=== PATIENT | male | born 1955 | race Caucasian/White ===

== ENCOUNTER 2016-10-01 19:26 | Inpatient (IN) | payer MEDICAID, OTHER ==
[~2016-10-01] VITALS: Ht 188 cm; Wt 80.9 kg
[2016-10-01 19:30] VITALS: Ht 188 cm; Wt 80.9 kg
[2016-10-01] MEDS ORDERED: ASPIRIN 325 MG TAB PO STA (19:56)
[2016-10-01] MEDS ORDERED: NITROGLYCERIN 2% 1 GM OINT PKT TD STA (19:56)
[2016-10-01 20:23] LABS: BASOPHIL # 0.1 10^3/ul (0.0-0.1); BASOPHILS % 1.1 % (0.0-2.0); EOSINOPHILS # 0.1 10^3/ul (0.0-0.5); EOSINOPHILS % 2.4 % (0.0-7.0); HEMATOCRIT 37.3 % (42.0-52.0); HEMOGLOBIN 12.5 g/dl (14.0-18.0); LYMPHOCYTES # 2.1 10^3/ul (0.8-2.9); LYMPHOCYTES % 33.4 % (15.0-51.0); MEAN CORPUSCULAR HEMOGLOBIN 31.4 pg (29.0-33.0); MEAN CORPUSCULAR HGB CONC 33.5 g/dl (32.0-37.0); MEAN CORPUSCULAR VOLUME 93.5 fl (82.0-101.0); MEAN PLATELET VOLUME 9.2 fl (7.4-10.4); MONOCYTE # 0.6 10^3/ul (0.3-0.9); MONOCYTES % 9.5 % (0.0-11.0); NEUTROPHIL # 3.3 10^3/ul (1.6-7.5); NEUTROPHILS % 53.6 % (39.0-77.0); PLATELET COUNT 220 10^3/UL (140-440); RED BLOOD COUNT 3.99 10^6/ul (4.70-6.10); RED CELL DISTRIBUTION WIDTH 14.3 % (11.5-14.5); UNCORRECTED WBC 6.2 10^3/ul (4.8-10.8); WHITE BLOOD COUNT 6.2 10^3/ul (4.8-10.8)
--- NOTE | 2016-10-01 20:23 | RADRPT ---
PROCEDURE: Chest x-ray CLINICAL INDICATION: Chest pain TECHNIQUE: Chest single view COMPARISON: None FINDINGS: There is mild cardiomegaly and an sclerotic aortic calcification. The pulmonary vessels are normal i n caliber. The lungs are clear. The costophrenic angles are sharp. The visualized bony thorax is unremarkable. IMPRESSION: No acute cardiopulmonary disease. Mild cardiomegaly and atherosclerotic aortic calcification RPTAT: HH .Sidney Charles MD, MD Date Time Electronically viewed and signed by .Sidney Charles MD, on 10/01/2016 20:22 .W/
[2016-10-01 20:24] LABS: CONDITION 1
[2016-10-01 20:30] LABS: CHLORIDE 106 mmol/L (97-110); POTASSIUM 4.5 mmol/L (3.5-5.1); SODIUM 146 mmol/L (135-144)
[2016-10-01 20:33] LABS: ANION GAP 16 (8-16); BLOOD UREA NITROGEN 27 mg/dl (7-20); CARBON DIOXIDE 29 mmol/L (21-31); CREATININE 0.85 mg/dl (0.61-1.24)
[2016-10-01 20:34] LABS: GLUCOSE 85 mg/dl (70-220)
[2016-10-01] MEDS ORDERED: SERT25TA83 PO (20:37)
[2016-10-01] MEDS ORDERED: HYDR-3012 PO (20:39)
[2016-10-01] MEDS ORDERED: TAMS0.4C2 PO (20:39)
[2016-10-01] MEDS ORDERED: ACET325T45 PO (20:40)
[2016-10-01] MEDS ORDERED: ASPI-664 PO (20:40)
[2016-10-01] MEDS ORDERED: HYD25 PO (20:41)
[2016-10-01] MEDS ORDERED: LISI-313 PO (20:41)
[2016-10-01] MEDS ORDERED: METO-448 PO (20:42)
[2016-10-01 20:46] LABS: TROPONIN-I < 0.012 ng/ml (0.00-0.12)
--- NOTE | 2016-10-01 22:37 | ERA ---
ER Documentation Chief Complaint Date/Time DATE: 10/01/16 TIME: 22:33 Chief Complaint left side chest pain,hx drug abuse, from Rehab HPI This is 60-year-old male was brought in from a rehab facility. The patient states that he has an rehab because of a fractured left leg. The patient states that he having substernal chest pressure with radiation to bilateral jaws and left upper extremity with some shortness of breath no nausea no diaphoresis. The pain occurred 2 hours ago and has just resolved. Patient denies hypertension but says that he had myocardial infarction 2 months ago while he was in [facility]. He stated the [place] [facility] him to a hospital in [place] where he underwent a coronary artery catheterization that did not show any blockage. He cannot recall the name of this hospital. We attempted to call [facility] to find out which hospital he was transferred to in order to obtain cardiac cath records but they are unable to provide us this information at this time ROS All systems reviewed and are negative except as per history of present illness. Medications Home Meds Reported Medications Metoprolol Tartrate* (Lopressor*) 25 Mg Tab, 25 MG PO BID, #60 TAB 10/01/16 Lisinopril* (Lisinopril*) 5 Mg Tablet, 5 MG PO DAILY, #30 TAB 10/01/16 Hydrochlorothiazide* (Hydrochlorothiazide*) 25 Mg Tab, 25 MG PO DAILY, #30 TAB 10/01/16 Acetaminophen* (Acetaminophen*) 325 Mg Tablet, 325 MG PO Q4H Y for PAIN AND OR ELEVATED TEMP, #30 TAB 10/01/16 Aspirin* (Aspirin* EC) 81 Mg Tablet.dr, 81 MG PO DAILY, TAB 10/01/16 Tamsulosin Hcl* (Tamsulosin Hcl*) 0.4 Mg Cap.er.24h, 0.4 MG PO DAILY, CAP 10/01/16 Hydroxyzine Hcl* (Hydroxyzine Hcl*) 50 Mg Tablet, 50 MG PO DAILY Y for ITCHING, #30 TAB 10/01/16 Sertraline Hcl* (Sertraline Hcl*) 25 Mg Tablet, 25 MG PO DAILY, #15 TAB 10/01/16 Allergies Allergies: Coded Allergies: Sulfa (Sulfonamide Antibiotics) (Verified Allergy, Unknown, hives, 10/01/16 ) FmHx Family History: No coronary disease Physical Exam Vitals Vital Signs Date Time Temp Pulse Resp B/P Pulse Ox O2 Delivery O2 Flow Rate FiO2 10/01/16 22:10 70 16 129/70 95 Room Air 10/01/16 21:12 50 16 131/99 98 Room Air 10/01/16 20:28 51 16 132/83 99 Room Air 10/01/16 20:09 Nasal Cannula 2 10/01/16 19:41 57 16 140/83 99 Room Air 10/01/16 19:30 97.1 61 18 151/89 97 Physical Exam Const: Well-developed, well-nourished Head: Atraumatic, normocephalic Eyes: Normal Conjunctiva, PERRLA, EOMI, normal sclera, no nystagmus ENT: Normal External Ears, Nose and Mouth, moist mucus membranes. Neck: Full range of motion. No meningismus, no lymphadenopathy. Resp: Clear to auscultation bilaterally, no wheezing, rhonchi, rales Cardio: Regular rate and rhythm, no murmurs, S1 S2 present Abd: Soft, non tender x 4, non distended. Normal bowel sounds, no guarding or rebound, no pulsitile abdominal masses or bruits Skin: No petechiae or rashes, no ecchymosis , no maculopapular rash Back: No midline or flank tenderness Ext: No cyanosis, or edema, FROM x 4, normal inspection, neurovascularly intact x 4 Neur: Awake and alert, STR 5/5 x 4, sensation intact x 4, no focal findings, cerebellum intact Psych: Very strange affect, slightly bizarre behavior with erratic answers at times but is oriented Result Diagram: 10/01/16199910/01/161999 Results 24 hrs Laboratory Tests Test 10/01/16 20:00 Anion Gap 16 Basophils # 0.110^3/ul Basophils % 1.1% Blood Urea Nitrogen 27mg/dl Calcium Level 9.0mg/dl Carbon Dioxide Level 29mmol/L Chloride Level 106mmol/L Creatinine 0.85mg/dl Eosinophils # 0.110^3/ul Eosinophils % 2.4% Glucose Level 85mg/dl Hematocrit 37.3% Hemoglobin 12.5g/dl Lymphocytes # 2.110^3/ul Lymphocytes % 33.4% Mean Corpuscular Hemoglobin 31.4pg Mean Corpuscular Hemoglobin Concent 33.5g/dl Mean Corpuscular Volume 93.5fl Mean Platelet Volume 9.2fl Monocytes # 0.610^3/ul Monocytes % 9.5% Neutrophils # 3.310^3/ul Neutrophils % 53.6% Nucleated Red Blood Cells # 0.010^3/ul Nucleated Red Blood Cells % 0.0/100WBC Platelet Count 61569^3/UL Potassium Level 4.5mmol/L Red Blood Count 3.9910^6/ul Red Cell Distribution Width 14.3% Sodium Level 146mmol/L Troponin I < 0.012ng/ml White Blood Count 6.210^3/ul Current Medications Medications (Trade) Dose Ordered Sig/Shantell Route PRN Reason Start Time Stop Time Status Last Admin Dose Admin Aspirin (Aspirin) 325 mg ONCE STAT PO 10/01/16 19:56 10/01/16 19:57 DC 10/01/16 20:05 Nitroglycerin (Nitroglycerin 2% Oint) 1 inch ONCE STAT TD 10/01/16 19:56 10/01/16 19:57 DC 10/01/16 20:04 Procedures/MDM EKG: Rate/Rhythm: Sinus bradycardia with premature atrial complexes QRS, ST, QT: NORMAL [place], QRS, QT] Impression: Sinus bradycardia EKG PROCEDURE: Chest x-ray CLINICAL INDICATION: Chest pain TECHNIQUE: Chest single view COMPARISON: None FINDINGS: There is mild cardiomegaly and an sclerotic aortic calcification. The pulmonary vessels are normal in caliber. The lungs are clear. The costophrenic angles are sharp. The visualized bony thorax is unremarkable. IMPRESSION: No acute cardiopulmonary disease. Mild cardiomegaly and atherosclerotic aortic calcification RPTAT: HH .Sidney Charles MD, Date Time Electronically viewed and signed by .Sidney Charles MD, on 10/01/2016 20:22 .W/ CC: SHIREEN SHEFFIELD DO Patient received aspirin and nitroglycerin to anterior chest wall. Cardiac workup is negative thus far. Insert ascertain the patient is truly having the symptoms to his slightly bizarre behavior nonetheless will air on the side of caution and admit him for observation Departure Diagnosis: Primary Impression: Chest pain Qualified Code: R07.9 - Chest pain, unspecified type Condition: Stable SHIREEN SHEFFIELD DO Oct 01, 2016 22:37
[2016-10-01] MEDS ORDERED: SOD CHLORIDE 0.9% 1,000 ML IV SCH (23:03)
[2016-10-01] MEDS ORDERED: ACETAMINOPHEN 325 MG TAB PO PRN (23:30)
[2016-10-01] MEDS ORDERED: ONDANSETRON 4 MG INJ IV PRN (23:30)
[2016-10-02] VITALS (17 sets, daily range): BP systolic 124–152; BP diastolic 73–95; PULSE 42–81; RESP 18–20
[2016-10-02] MEDS ORDERED: hydrOXYzine HCL 25 MG TAB PO PRN (01:30)
[2016-10-02] MEDS ORDERED: NITROGLYCERIN (SL) 0.4 MG TAB SL PRN (01:30)
[2016-10-02] MEDS ORDERED: ONDANSETRON 4 MG INJ IV PRN (01:30)
[2016-10-02] MEDS ORDERED: morphine 2 MG INJ IV PRN (01:30)
[2016-10-02] MEDS ORDERED: ACETAMINOPHEN 325 MG TAB PO PRN (01:30)
[2016-10-02 07:23] LABS: CREATINE KINASE 110 IU/L (23-200)
[2016-10-02 07:48] LABS: CK-MB 0.94 ng/ml (0.0-2.4); TROPONIN-I < 0.012 ng/ml (0.00-0.12)
--- NOTE | 2016-10-02 08:05 | HP ---
DATE OF ADMISSION: 10/01/2016 CHIEF COMPLAINT: Chest pain. HISTORY OF PRESENT ILLNESS: The patient is a 60-year-old male with a history of hypertension, BPH, depression, and drug abuse who presented to the emergency department with a chief complaint of chest pain. The patient had been at the acute rehab facility for left leg fracture. He stated that whil e he was watching TV, he started having pressure-like chest pain, initially localized in the mid cheryl st with radiation to his left arm and to some extent to his jaw. He reported some shortness of humza th but denied nausea, vomiting, or diaphoresis. The patient reported having had a "heart attack" 2 months ago while he was in at [facility]. He stated he was sent to some hospital in [place] where he underwent cardiac catheterization but said there were no blocked arteries that were found. The ER attempted to call [facility] to find out which hospital he was sent to in order to obtain his car diac records, but the residential was not able to provide that information. Currently, he stated his pain is better but it is 3/10. He was given nitro and aspirin while he was in the ER. Laboratory value shows hemoglobin of 12.5 and sodium of 146 and BUN 27. Otherwise, CBC and BMP are within normal torres its. First troponin is negative. The EKG shows sinus bradycardia. As far as his vitals are concer socorro, initially he presented with blood pressure 151/89, heart rate 61, respiratory rate 18, temperat ure 97.1, oxygen saturation 97% on room air. His heart rate has been documented to be as low as 45. REVIEW OF SYSTEMS: A 12-point review of systems performed and negative except as mentioned in HPI. PAST MEDICAL HISTORY: As per HPI. SOCIAL HISTORY: He had a history of drug abuse. ALLERGIES: SULFA. HOME MEDICATION: 1. Flomax. 2. Lisinopril. 3. Lopressor. 4. Tylenol. 5. Aspirin. 6. Hydroxyzine. 7. Sertraline. 8. Hydrochlorothiazide. PHYSICAL EXAMINATION: VITAL SIGNS: Blood pressure 129/70, heart rate 50, respiratory rate 16, temperature earlier was 97. 1, oxygen saturation 98% on room air. GENERAL: No acute distress. The patient is alert and oriented. HEENT: No obvious head deformity. Pupils are reactive to light. Extraocular muscles intact. CARDIOVASCULAR: Bradycardia with regular rhythm. LUNGS: Clear. ABDOMEN: Soft, nontender, nondistended. Positive bowel sounds. EXTREMITIES: No edema. NEUROLOGIC: No focal deficits. LABORATORY DATA: Sodium 146, BUN 27, and hemoglobin 12.5. Otherwise, CBC and BMP within normal torres its. First troponin is negative. IMAGING: Chest x-ray shows mild cardiomegaly with atherosclerotic aortic calcification with no evid ence of acute cardiopulmonary disease. IMPRESSION: 1. Chest pain, need to rule out acute coronary syndrome. 2. Hypertension. 3. Benign prostatic hypertrophy. 4. History of depression. 5. Self-reported history of ME 2 months ago at [facility] 6. Mild hypernatremia. 7. Mild normocytic anemia. PLAN: Continue telemetry monitoring. The first troponin is negative and EKG with no ST-T wave abno rmalities. We will trend his troponin. He will be continued with his home medications which includ e metoprolol, lisinopril, and aspirin. He will also be placed on oxygen and will be provided as nee ded nitro and morphine. We will obtain a 2D echo, and we will consider a cardiology consult. We wi ll attempt to contact the [facility] to get information of the hospital that the patient claims that he was transferred to and had cardiac catheterization. Further workup and management per clinical course. Dictated By: JARED GIVENS/JESS Conf#: [id number] DID#: [id number]
[2016-10-02] MEDS ORDERED: METOPROLOL 25 MG TAB PO SCH (09:00)
[2016-10-02] MEDS: ASPIRIN (EC) 81 MG TAB PO SCH (09:33)
[2016-10-02] MEDS: SERTRALINE 50 MG TAB PO SCH (09:34)
[2016-10-02] MEDS: LISINOPRIL 5 MG TAB PO SCH (09:34)
[2016-10-02] MEDS: HYDROCHLOROTHIAZIDE 25 MG TAB PO SCH (09:37)
--- NOTE | 2016-10-02 13:19 | CONS ---
Date/Time of Note Date/Time of Note DATE: 10/02/16 TIME: 13:12 Assessment/Plan Assessment/Plan Additional Assessment/Plan Chest pain Palpitations Nonsustained ventricular tachycardia Possible cardiomyopathy based on history History of amphetamine and cocaine use -Serial troponins have remained negative, ECG without any significant ischemic abnormalities. Telemetry reviewed with brief episodes of nonsustained ventricular tachycardia. Would continue beta noreen as blood pressure and heart rate permits, and maintain potassium above 4.0 and magnesium above 2.0. Check echocardiogram, continue telemetry monitoring. Check TSH and magnesium level. Obtain records of coronary angiogram. Consultation Date/Type/Reason Admit Date/Time Oct 01, 2016 at 23:04 Type of Consultation: cv Reason for Consultation Palpitations and chest pain Hx of Present Illness This is a 60-year-old male with past medical history of hypertension, "enlarged heart" who presents with symptoms of palpitations and chest pain. Patient was getting out of the shower, and felt weak and warm. He felt discomfort on the left side of his chest and his left arm with palpitations. The symptoms continued to worsen until he came to the emergency room. He does complain of frequent symptoms of "mixed heart beats". He denies exertional chest pain or shortness of breath. He was recently incarcerated at [facility]. While he was there approximately 2 months ago, patient with severe chest pain and shortness of breath. He states he was transferred to a hospital in [place] and underwent coronary angiogram. He was told his arteries were fine but he had a "large and weak heart". He was put on medications and sent back to the jail. 12 point review of systems was performed with all pertinent positives and negatives mentioned above and all else is negative Past Medical History Possible congestive heart failure Hypertension Past Surgical History Orthopedic surgery Family History Significant Family History: no pertinent family hx Social History Alcohol Use: none Smoking Status: Current some day smoker Drug Use: other (patient currently smokes marijuana, previously use to use amphetamines and cocaine but stopped 3 years ago) Exam/Review of Systems Vital Signs Vitals Vital Signs Date Time Temp Pulse Resp B/P Pulse Ox O2 Delivery O2 Flow Rate FiO2 10/02/16 12:23 42 10/02/16 11:53 98.5 19 134/92 96 10/02/16 01:42 Room Air 10/01/16 20:09 2 Exam No apparent distress Constitutional: alert, oriented, well developed Head: normocephalic Neck: supple Respiratory: other (course breath sounds bilaterally, no wheezing) Cardiovascular: other (S1 and S2 heard), regular rate and rhythm Gastrointestinal: bowel sounds, non-tender, other (no guarding), soft Extremities: other (no edema) Results Result Diagram: 10/01/16199910/01/161999 Results 24 hrs Laboratory Tests Test 10/01/16 20:00 10/02/16 01:50 10/02/16 05:10 Anion Gap 16 Basophils # 0.1 Basophils % 1.1 Blood Urea Nitrogen 27 H Calcium Level 9.0 Carbon Dioxide Level 29 Chloride Level 106 Creatinine 0.85 Eosinophils # 0.1 Eosinophils % 2.4 Glucose Level 85 Hematocrit 37.3 L Hemoglobin 12.5 L Lymphocytes # 2.1 Lymphocytes % 33.4 Mean Corpuscular Hemoglobin 31.4 Mean Corpuscular Hemoglobin Concent 33.5 Mean Corpuscular Volume 93.5 Mean Platelet Volume 9.2 Monocytes # 0.6 Monocytes % 9.5 Neutrophils # 3.3 Neutrophils % 53.6 Nucleated Red Blood Cells # 0.0 Nucleated Red Blood Cells % 0.0 Platelet Count 220 Potassium Level 4.5 Red Blood Count 3.99 L Red Cell Distribution Width 14.3 Sodium Level 146 H Troponin I < 0.012 < 0.012 < 0.012 White Blood Count 6.2 Creatine Kinase 110 Creatine Kinase Index 0.9 Creatinine Kinase MB (Mass) 0.94 Medications Medications Current Medications Acetaminophen (Tylenol Tab) 325 mg Q4H PRN PO PAIN AND OR ELEVATED TEMP; Start 10/02/16 at 01:30 Aspirin (Halfprin) 81 mg DAILY PO Last administered on 10/02/16 09:33; Admin Dose 81 MG; Start 10/02/16 at 09:00 Hydrochlorothiazide (Hydrochlorothiazide) 25 mg DAILY PO Last administered on 09:37; Admin Dose 25 MG; Start 10/02/16 at 09:00 Hydroxyzine HCl (Atarax) 50 mg DAILY PRN PO ITCHING; Start 10/02/16 at 01:30 Lisinopril (Zestril) 5 mg DAILY PO Last administered on 10/02/16 09:34; Admin Dose 5 MG; Start 10/02/16 at 09:00 Metoprolol Tartrate (Lopressor) 25 mg BID PO Last administered on 10/02/16 09: 46; Admin Dose 25 MG; Start 10/02/16 at 09:00 Sertraline HCl (Zoloft) 25 mg DAILY PO Last administered on 10/02/16 09:34; Admin Dose 25 MG; Start 10/02/16 at 09:00 Tamsulosin HCl (Flomax) 0.4 mg DAILY@21 PO ; Start 10/02/16 at 21:00 Atorvastatin Calcium (Lipitor) 20 mg HS PO ; Start 10/02/16 at 21:00 Ondansetron HCl (Zofran Inj) 4 mg Q4H PRN IV NAUSEA AND/OR VOMITING; Start at 01:30 Morphine Sulfate (morphine) 2 mg Q4H PRN IV SEVERE PAIN LEVEL 7-10; Start 10/02 at 01:30 Nitroglycerin (Nitroglycerin (Sl Tab) 0.4 Mg) 1 tab Q5M PRN SL ANGINA; Start at 01:30 Procedures Procedures ECG demonstrates sinus bradycardia at 56 bpm with PVC, QRS 90 ms, no significant STT wave abnormalities Telemetry reviewed with brief episodes of nonsustained VT, polymorphic Jesus Rodriguez DO Oct 02, 2016 13:19
[2016-10-02 13:40] LABS: MAGNESIUM 1.8 mg/dl (1.7-2.5)
[2016-10-02 14:11] LABS: THYROID STIMULATING HORMONE 2.16 MIU/L (0.465-4.680)
[2016-10-02] MEDS ORDERED: DOCUSATE SODIUM 100 MG CAP PO PRN (15:00)
--- NOTE | 2016-10-02 15:06 | PN ---
Date/Time of Note Date/Time of Note DATE: 10/02/16 TIME: 15:01 Assessment/Plan VTE Prophylaxis VTE Prophylaxis Intervention: LMWH Lines/Catheters IV [facility] Urinary Cath still in place: No Assessment/Plan Chief Complaint/Hosp Course S- moderate sharp/ pressure atypical chest pain at rest. some pleuritic nature. no dyspnea/ cough/edema/fever. O- vss; nsvt noted PE no pallor jvd s1s2 reg; no r m g ctab bs + nt nd no r r g no edema or Chasidy's A/P 1. Chest pain; stable, ro acs/ unstable angina. 2. CAD; continue medical management. adherence may be an issue with aggressive intervention 3. Htn; sinus kenn noted 4. Tobacco abuse 5. Ho marijuana/ cocaine/ meth use? 6. Old mi via history; trying to obtain cath results 7. Ho lt leg fracture 8. Nsvt 9. Ischemic cardiomyopathy; EF pending 10. Depression 11. Bph Problems: Exam/Review of Systems Vital Signs Vitals Vital Signs Date Time Temp Pulse Resp B/P Pulse Ox O2 Delivery O2 Flow Rate FiO2 10/02/16 13:31 49 10/02/16 11:53 98.5 19 134/92 96 10/02/16 01:42 Room Air 10/01/16 20:09 2 Results Result Diagram: 10/01/16199910/01/161999 Results 24 hrs Laboratory Tests Test 10/01/16 20:00 10/02/16 01:50 10/02/16 05:10 Anion Gap 16 Basophils # 0.1 Basophils % 1.1 Blood Urea Nitrogen 27 H Calcium Level 9.0 Carbon Dioxide Level 29 Chloride Level 106 Creatinine 0.85 Eosinophils # 0.1 Eosinophils % 2.4 Glucose Level 85 Hematocrit 37.3 L Hemoglobin 12.5 L Lymphocytes # 2.1 Lymphocytes % 33.4 Mean Corpuscular Hemoglobin 31.4 Mean Corpuscular Hemoglobin Concent 33.5 Mean Corpuscular Volume 93.5 Mean Platelet Volume 9.2 Monocytes # 0.6 Monocytes % 9.5 Neutrophils # 3.3 Neutrophils % 53.6 Nucleated Red Blood Cells # 0.0 Nucleated Red Blood Cells % 0.0 Platelet Count 220 Potassium Level 4.5 Red Blood Count 3.99 L Red Cell Distribution Width 14.3 Sodium Level 146 H Troponin I < 0.012 < 0.012 < 0.012 White Blood Count 6.2 Creatine Kinase 110 Creatine Kinase Index 0.9 Creatinine Kinase MB (Mass) 0.94 Magnesium Level 1.8 Thyroid Stimulating Hormone (TSH) 2.160 Medications Medications Current Medications Acetaminophen (Tylenol Tab) 325 mg Q4H PRN PO PAIN AND OR ELEVATED TEMP; Start 10/02/16 at 01:30 Aspirin (Halfprin) 81 mg DAILY PO Last administered on 10/02/16 09:33; Admin Dose 81 MG; Start 10/02/16 at 09:00 Hydrochlorothiazide (Hydrochlorothiazide) 25 mg DAILY PO Last administered on 09:37; Admin Dose 25 MG; Start 10/02/16 at 09:00 Hydroxyzine HCl (Atarax) 50 mg DAILY PRN PO ITCHING; Start 10/02/16 at 01:30 Lisinopril (Zestril) 5 mg DAILY PO Last administered on 10/02/16 09:34; Admin Dose 5 MG; Start 10/02/16 at 09:00 Sertraline HCl (Zoloft) 25 mg DAILY PO Last administered on 10/02/16 09:34; Admin Dose 25 MG; Start 10/02/16 at 09:00 Tamsulosin HCl (Flomax) 0.4 mg DAILY@21 PO ; Start 10/02/16 at 21:00 Atorvastatin Calcium (Lipitor) 20 mg HS PO ; Start 10/02/16 at 21:00 Ondansetron HCl (Zofran Inj) 4 mg Q4H PRN IV NAUSEA AND/OR VOMITING; Start at 01:30 Morphine Sulfate (morphine) 2 mg Q4H PRN IV SEVERE PAIN LEVEL 7-10; Start 10/02 at 01:30 Nitroglycerin (Nitroglycerin (Sl Tab) 0.4 Mg) 1 tab Q5M PRN SL ANGINA; Start at 01:30 Metoprolol Tartrate (Lopressor) 12.5 mg BID PO ; Start 10/02/16 at 21:00 GUI SIM MD Oct 02, 2016 15:05
--- NOTE | 2016-10-02 15:12 | RADRPT ---
Echocardiogram Report Patient Name: JAN KRAUS Gender: Male Date: 1955 Study Date: 02-Oct-2016 Cemetery Warden: Mercedes Mason [facility] Location: [id number] Ref. Physician: JESUS RODRIGUEZ Quality: Good Procedures: Transthoracic echocardiogram with complete 2D, M-Mode, and doppler examination. Indications: Chest Pain. 2D/M Mode Doppler Measurement Value Normal Ranges Measurement Value Normal Ranges LVIDd 2D 5.3 3.5 - 5.6 cm AV Peak [place] 1.6 m/sec LVIDs 2D 2.7 2.1 - 4.1 cm AV Peak PG 10.5 mmHg LVPWd 2D 1.1 0.6 - 1.1 cm LVOT Peak [place] 0.9 m/sec IVSd 2D 0.9 0.6 - 1.1 cm LVOT Peak PG 3.5 mmHg AoR Diam 2D 3.4 2.0 - 3.7 cm MV E Peak [place] 0.6 m/sec EDV 2D 137.7 cm3 MV A Peak [place] 0.5 m/sec ESV 2D 20.2 cm3 MV E/A 1.2 LA Dimen 2D 4.1 2.3 - 4.0 cm MV Decel Time 260 msec MV Decel [place] 2 MV E/A 1.2 TR Peak [place] 2.8 m/sec TR Peak PG 31.1 mmHg RVSP 39.0 mmHg Findings Left Ventricle: Normal left ventricular systolic function. Normal left ventricular cavity size. Mild concentric left ventricular hypertrophy. Ejection fraction is visually estimated at 55 %. Right Ventricle: Normal right ventricular size. Normal right ventricular systolic function. Left Atrium: There is mild enlargement of left atrium. Right Atrium: The right atrium is normal in size. Mitral Valve: Mitral valve leaflets appear mildly thickened. Mild mitral annular calcification. Trace mitral regurgitation. Aortic Valve: Normal appearance of the aortic valve. No significant aortic stenosis or insufficiency. Tricuspid Valve: Normal appearance and function of the tricuspid valve with trace physiologic regurgitation. Estimated peak PA systolic pressure 39 mmHg. Pericardium: Normal pericardium with no significant pericardial effusion. Aorta: Normal aortic root. IVC: Dilated IVC with respiratory collapse consistent with elevated right atrial pressure. Conclusions 1.Normal left ventricular systolic function. Normal left ventricular cavity size. Mild concentric left ventricular hypertrophy. Ejection fraction is visually estimated at 55 %. 2.Normal right ventricular size. Normal right ventricular systolic function. 3.There is mild enlargement of left atrium. 4.The right atrium is normal in size. 5.No significant valvular stenosis or regurgitation seen. 6.Normal pericardium with no significant pericardial effusion. Electronically Signed By: Jesus Rodriguez 02-Oct-2016 15:11:52 -0800 Patient Name: JAN KRAUS Study Date: 02-Oct-[id number]
[2016-10-02] MEDS: NICOTINE (21 MG/24 HR) PATCH TRANSDERM SCH (20:47)
[2016-10-02] MEDS: MAGNESIUM OXIDE 400 MG TAB PO SCH (20:47)
[2016-10-02] MEDS: ENOXAPARIN 80 MG/0.8 ML SYG SC SCH (20:50)
[2016-10-02] MEDS ORDERED: TAMSULOSIN (SR) 0.4 MG CAP PO SCH (21:00)
[2016-10-02] MEDS: METOPROLOL 25 MG TAB PO SCH (21:00)
[2016-10-02] MEDS ORDERED: ATORVASTATIN 20 MG TAB PO SCH (21:00)
--- NOTE | 2016-10-02 21:32 | RADRPT ---
PROCEDURE: US Lower extremity Venous. CLINICAL INDICATION: Bilateral lower extremity swelling TECHNIQUE: Multiple sonographic images of the bilateral lower extremity deep venous system was obt ained utilizing grayscale, color-flow, compressive sonography and doppler imaging with augmentation. The images were reviewed on a PACS workstation. COMPARISON: None. FINDINGS: There is normal compressibility and flow within the bilateral common femoral, superficial femoral , posterior tibial and popliteal veins. RPTAT: AA IMPRESSION: No sonographic evidence for deep venous thrombosis. .Camden Fleming MD, MD Date Time Electronically viewed and signed by .Camden Fleming MD, on 10/02/2016 21:32 .S/
[2016-10-03] VITALS (13 sets, daily range): BP systolic 128–163; BP diastolic 69–105; PULSE 54–82; RESP 15–20
[2016-10-03] MEDS: METOPROLOL 25 MG TAB PO SCH (01:18)
[2016-10-03 07:14] LABS: INR 1.01; PROTIME 13.3 Sec (12.2-14.2)
[2016-10-03 07:35] LABS: ALBUMIN 3.4 g/dl (3.3-4.9)
[2016-10-03 07:37] LABS: BILIRUBIN,INDIRECT 0.2 mg/dl (0-1.1); BILIRUBIN,TOTAL 0.2 mg/dl (0.2-1.3); CREATININE 0.82 mg/dl (0.61-1.24)
[2016-10-03 07:38] LABS: PHOSPHORUS 3.5 mg/dl (2.5-4.9); TOTAL PROTEIN 6.6 g/dl (6.1-8.1)
[2016-10-03 07:39] LABS: CALCIUM 8.8 mg/dl (8.4-10.2)
[2016-10-03 08:01] LABS: ALBUMIN/GLOBULIN RATIO 1.06
[2016-10-03] MEDS: HYDROCHLOROTHIAZIDE 25 MG TAB PO SCH (08:46)
[2016-10-03] MEDS: LISINOPRIL 5 MG TAB PO SCH (08:46)
[2016-10-03] MEDS: ASPIRIN (EC) 81 MG TAB PO SCH (08:46)
[2016-10-03] MEDS: MAGNESIUM OXIDE 400 MG TAB PO SCH (08:47)
[2016-10-03] MEDS: SERTRALINE 50 MG TAB PO SCH (08:47)
[2016-10-03] MEDS: NICOTINE (21 MG/24 HR) PATCH TRANSDERM SCH (08:49)
[2016-10-03] MEDS: ENOXAPARIN 80 MG/0.8 ML SYG SC SCH (08:51)
[2016-10-03 09:01] LABS: THYROID STIMULATING HORMONE 2.96 MIU/L (0.465-4.680)
--- NOTE | 2016-10-03 11:11 | PDOCDIS ---
Discharge Instructions DIAGNOSIS Discharge Diagnosis: chest pain CONDITION Patient Condition: Good HOME CARE INSTRUCTIONS: Diet Instructions: Low Fat /CholesterolSpecial Diet: 2GM NA/ low chol ACTIVITY: Activity Restrictions: Avoid heavy lifting Do not Drive FOLLOW UP/APPOINTMENTS Appointments [facility] - do not use patch if smoking. GUI SIM MD Oct 03, 2016 11:11
[2016-10-03] MEDS ORDERED: METO-448 PO (11:13)
[2016-10-03] MEDS ORDERED: ATOR20TA65 PO (11:13)
--- NOTE | 2016-10-04 07:18 | DS ---
DATE OF ADMISSION: 10/02/2016 DATE OF DISCHARGE: 10/03/2016 PRIMARY CARE PHYSICIAN: Unknown. INTERIOR DECORATOR PAINTING: Dr. Rodriguez DIAGNOSIS ON ADMISSION: Chest pain. DIAGNOSES ON DISCHARGE: 1. Atypical chest pain, pleurisy. 2. Chronic tobacco abuse. 3. Probable chronic coronary artery disease. 4. Hypertension. 5. Sinus bradycardia. 6. History of substance abuse. 7. 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 8. History of left leg fracture. 9. Nonsustained ventricular tachycardia. 10. Depression. 11. Benign prostatic hypertrophy. 12. Prediabetes. HOSPITAL COURSE: This is a 61-year-old gentleman admitted for chest pain. He was ruled out for acu te coronary syndrome by enzymes, EKG symptoms. He did have PVCs and nonsustained ventricular tachyc ardia. The patient states he had recent cardiac intervention somewhere near [place] or [facility] 1 month ago. He does not have any history of a balloon or angioplasty requiring anticoagulant. W e are unable to obtain further data from his outside hospital as he does not recall which hospital e was at. There was apparently incarcerated at [place] during that time period. The patient was seen by cardiology and if agreeable will be discharged home. He is already on maxim al medical therapy including beta noreen, MERCEDEZ inhibitor, aspirin. I will add a statin. All these medications will be continued with short term prescriptions as I am not sure about his long-term adh erence. No arrhythmias in the last 24 hours. He will be seen by cardiology and if stable will be d ischarged. EF of about 55 to 60 without any significant wall motion abnormalities on this present e cho. He may follow up with cardiology. He will follow up with primary. He has a history of marijuana, cocaine, meth, and tobacco abuse. I reinforced that adherence is vit al to his health. I will additionally reinforce that subsequences will not land surveyor assistant in any medical care that we are trying to do for his heart. He is presently not using cocaine; however, if this b ecomes an issue, we will have to further optimize or tune up his medical care. Additionally, he is instructed not to smoke while using the nicotine patch. I do not have any evidence that he will ari t smoking at this time. The patient has some depression or other behavioral health issues. I will refill Zoloft for the nex t few weeks. Sinus bradycardia as expected. We will change his beta noreen a little bit. As his blood pressure fluctuates, I will increase his lisinopril. DISCHARGE PLAN: Home. FOLLOWUP: With primary in 1 week, cardiology in 2 to 4 weeks, and behavior health in 1 to 2 weeks. DIET: Low salt, cholesterol, cardiac. ACTIVITY: No heavy lifting. DURABLE MEDICAL EQUIPMENT: None. CODE STATUS: FULL. BARRIERS TO DISCHARGE: None. PENDING TESTS: None. FUNCTIONAL STATUS: The patient is awake, alert, aware of the plan of care. REASON FOR ADMISSION: Chest pain. CONDITION: Good. ALLERGIES: SULFA. IMAGING DATA: A 2-D echo noted to have an EF of 55, mild concentric LVH. Chest x-ray: Mild cardio megaly, no acute process. No widened mediastinum on the chest x-ray. Ultrasound: Negative for DVT bilaterally. LABORATORY DATA: White cell count of 6, hemoglobin and hematocrit of 12 and 37. INR 1. CMP essent ially unremarkable. BUN of 24. A1c of 5.6. LFTs okay. TSH of 2. Troponin negative x3. STOPPED MEDICATIONS: None. CONTINUED MEDICATIONS: 1. Tylenol as needed. 2. Aspirin 81. 3. Hydrochlorothiazide 25. 4. Hydroxyzine 50 as needed for itching. 5. Zoloft 25. 6. Flomax 0.4. ALTERED MEDICATIONS 1. Metoprolol now 12.5 twice daily. 2. Lipitor 20 daily. Dictated By: GUI BAL/NTS Conf#: [id number] DID#: [id number] CC: EDISON RODRIGUEZ DO;*End*
[2016-10-04] MEDS ORDERED: LISINOPRIL 10 MG TAB PO SCH (09:00)
--- NOTE | 2016-10-05 22:08 | PN ---
DATE: 10/03/2016 CARDIOLOGY FOLLOWUP With the help of Dr. Rodriguez. SUBJECTIVE: The patient has had short episodes of nonsustained VT. No reported symptoms with those . He denies any chest pain or pressure to me at this time. The patient has been intermittently tristian en himself off of telemetry and has been going out of bed. He could not be found for some time; in fact, when I came to see him, he was not in his bed and nobody could find him. Finally, he returned . MEDICATIONS: Reviewed as per medication reconciliation, personally reviewed. PHYSICAL EXAMINATION: VITAL SIGNS: Temperature 97.9, heart rate of 76, blood pressure 160/77, respiration rate of 20, sat urating 96%. HEENT: Normocephalic, atraumatic. . Pupils are equal. CARDIOVASCULAR: Regular rate and rhythm. PULMONARY: With no wheezes. GASTROINTESTINAL: Soft, nontender. EXTREMITIES: No significant edema. NEUROLOGIC: Awake and alert. LABORATORY: Troponin has been negative at less than 0.012. Echocardiogram read by Dr. Rodriguez shows ejection fraction of 55%. Again, he stated to me that he had a coronary angiography done a couple months ago. Also told me it was completely normal coronaries. ASSESSMENT AND PLAN: 1. Chest pain has resolved. 2. History of negative coronary angiogram, per his report. 3. History of nonsustained ventricular tachycardia. 4. Questionable history of amphetamine and cocaine use. 5. History of tobacco use. 6. Hypertension. RECOMMENDATIONS: Patient has been started on beta-noreen. Okay for discharge from the cardiac sta ndpoint on the current medication. Otherwise, to follow up with his primary care physician this donis holm Dictated By: BISI MENDEZ MD AV/JESS Conf#: [id number] DID#: [id number] CC: GUI SIM MD;*End*
== END 2016-10-03 10:15 | disposition home or self-care (01) | DRG 313 ==
LOC: E/R 19:26 → TEL 23:04 → OBSVTOIN 10-02 16:10
PROVIDERS: ADMIT Internal Medicine; ATTEND Internal Medicine
DX: R07.89 Other chest pain (principal); I25.2 Old myocardial infarction; I10 Essential (primary) hypertension; F17.210 Nicotine dependence, cigarettes, uncomplicated; I25.10 Atherosclerotic heart disease of native coronary artery without angina pectoris; R00.1 Bradycardia, unspecified; F32.9 Major depressive disorder, single episode, unspecified; N40.0 Benign prostatic hyperplasia without lower urinary tract symptoms; R73.03 Prediabetes
CPT/HCPCS: 36415; 71010; 80048; 80053; 82306; 82550; 82553; 83036; 83735; 84100; 84443; 84484; 85025; 85610; 93005; 93306; 93923; 99217; G0378; J7030